=== PATIENT | male | born 1980 | race Caucasian/White ===

== ENCOUNTER 2023-02-11 15:39 | Observation (INO) | payer BC, SELFPAY ==
[2023-02-11] VITALS (7 sets, daily range): BP systolic 116–145; BP diastolic 72–83; PULSE 79–114; RESP 18–24; TEMP 36.3–37.2; O2SAT 94–100; BMI 36.0
[2023-02-11 16:13] LABS: Basophils Percent Auto 0.3 % (0.2-1.2); Eosinophils Absolute Auto 0.2 K/mm3 (0-0.3); Eosinophils Percent Auto 1.3 % (0-4.4); Hematocrit 42.1 % (42.0-52.0); Hemoglobin 14.1 g/dL (14.0-18.0); Immature Granulocyte Absolute 0.04 K/mm3 (0.00-0.031); Immature Granulocyte Percent A 0.3 % (0-0.5); Lymphocytes Absolute Auto 2.61 K/mm3 (0.9-3.2); Lymphocytes Percent Auto 21.8 % (18.3-44.2); Mean Corpuscular HGB Conc 33.5 g/dl (32-36); Mean Corpuscular Hemoglobin 29.3 pg (26-34); Mean Corpuscular Volume 87.5 fl (80-100); Mean Platelet Volume 9.9 fl (7.4-10.4); Monocytes Percent Auto 8.7 % (2.6-8.5); Neutrophils Absolute Auto 8.1 K/mm3 (1.3-6.7); Neutrophils Percent Auto 67.6 % (45.5-73.1); Platelet Count Result 395 k/mm3 (150-375); Red Blood Count 4.81 M/mm3 (4.6-6.20); Red Cell Distribution Width 13.5 % (11.5-14.5)
[2023-02-11 16:20] LABS: Lactic Acid Reflex 1.7 mmol/L (0.7-2.0)
--- NOTE | 2023-02-11 16:22 | ED.LOWEXIN ---
HPI - Extremity Injury (Lower) General Chief Complaint: Extremity Injury, Lower <Alethea Saucedo PA-C - Last Filed: 02/11/23 16:42> Stated Complaint: right leg cellulitis <Alethea Saucedo PA-C - Last Filed: 02/11/23 16:42> Time Seen by Provider: 02/11/23 15:48 <LIU Lawrence Last Filed: 02/11/23 16:42> Source: patient <LIU Lawrence Last Filed: 02/11/23 16:42> Mode of arrival: ambulatory <LIU Lawrence Last Filed: 02/11/23 16:42> Limitations: no limitations <LIU Lawrence Last Filed: 02/11/23 16:42> History of Present Illness HPI Narrative: Patient is a 42-year-old male, with past medical history of diabetes, who presents to the ED with report of left lower leg cellulitis. Patient reports he was camping in the [facility] last week and stepped on a rock sustaining a small abrasion to his left inner plantar foot. He noticed pain, redness, swelling to his left lower leg last Friday. He was started on Augmentin by his primary care doctor. Patient reports the pain, swelling, redness has become worse. He also reports his left lower leg began weeping today. Patient reported fevers last week, none today. States his blood sugars have been elevated. <Alethea Saucedo PA-C - Last Filed: 02/11/23 16:42> Related Data Home Medications: Home Medications Medication Instructions Recorded Confirmed albuterol sulfate 90 mcg/actuation 2 puff inhalation Q6H PRN 02/11/23 02/11/23 aerosol inhaler Shortness Of Breath amoxicillin 875 mg-potassium 1 tablet PO BID 02/11/23 02/11/23 clavulanate 125 mg tablet aspirin 81 mg capsule 81 mg PO DAILY 02/11/23 02/11/23 atorvastatin 40 mg tablet 40 mg PO DAILY 02/11/23 02/11/23 budesonide-formoterol HFA 160 1 puff inhalation QID 02/11/23 02/11/23 mcg-4.5 mcg/actuation aerosol inhaler (Symbicort) dapagliflozin propanediol 10 mg 10 mg PO DAILY 02/11/23 02/11/23 tablet (Farxiga) etodolac 400 mg tablet 400 mg PO PRN 02/11/23 02/11/23 icosapent ethyl 1 gram capsule 2 g PO BID 02/11/23 02/11/23 (Vascepa) insulin degludec 200 unit/mL (3 110 unit subcut DAILY 02/11/23 02/11/23 mL) subcutaneous pen (Tresiba FlexTouch U-200 insulin) lisinopril 20 mg tablet 20 mg PO TID 02/11/23 02/11/23 semaglutide 1 mg/dose (4 mg/3 mL) 2 mg subcut WEEKLY 02/11/23 02/11/23 subcutaneous pen injector (Ozempic) <Alethea Saucedo PA-C - Last Filed: 02/11/23 16:42> Allergies/Adverse Reactions: Allergies Allergy/AdvReac Type Severity Reaction Status Date / Time metformin AdvReac Diarrhea Verified 02/11/23 17:40 <Alethea Saucedo PA-C - Last Filed: 02/11/23 16:42> Review of Systems Review of Systems: CONSTITUTIONAL: Denies fever, chills, or sweats. SKIN: See HPI. MUSCULOSKELETAL: See HPI. NEUROLOGIC: Denies headache, numbness, or weakness. <Alethea Saucedo PA-C - Last Filed: 02/11/23 16:42> All systems reviewed & are unremarkable except as noted in HPI and below <Alethea Saucedo PA-C - Last Filed: 02/11/23 16:42> [facility] Past Medical History Medical History: Medical History Diabetes mellitus <Alethea Saucedo PA-C - Last Filed: 02/11/23 16:42> Family History Family History: Family History Father Family history of diabetes mellitus in first degree relative Other Diabetes mellitus Hypertension <Alethea Saucedo PA-C - Last Filed: 02/11/23 16:42> Social History Social History: Social History Smoking packs per day: 1.5 Smoking cigarettes per day: 30.0 Years smoked: 30 Smoking pack-years: 45.00 Smoking status: Current every day smoker Tobacco type: cigarettes Second hand tobacco smoke exposure: Yes Alcohol intake: current Drinks
[2023-02-11 16:23] LABS: Alanine Aminotransferase 31 U/L (6-50); Albumin Level 4.2 g/dL (3.5-5.1); Alkaline Phosphatase 93 U/L (38-126); Anion Gap 11 mmol/L (8-16); Aspartate Amino Transferase 22 U/L (17-59); Bilirubin,Total 0.6 mg/dL (0.2-1.3); Blood Urea Nitrogen 14 mg/dL (9-20); Calcium 9.3 mg/dL (8.4-10.2); Carbon Dioxide 24 mmol/L (22-30); Chloride 106 mmol/L (98-107); Estimated CRCL calculation 133 ml/min; Estimated Glomerular Filt Rate > 60; Glucose 160 mg/dL (65-110); Potassium 3.5 mmol/L (3.4-5.0); Sodium 141 mmol/L (137-145)
[2023-02-11] MEDS: MORPHINE SULFATE (*CRX) 4 MG/ML INJ IV PUSH (16:36)
--- NOTE | 2023-02-11 16:36 | PC.NURSE ---
called to lab and spoke to Kerri- add on HGB A1C @1632
[2023-02-11] MEDS: ONDANSETRON INJ 4 MG/2 ML VIAL IV PUSH (16:38)
[2023-02-11] MEDS: CEFEPIME 2 GM/NS 50 ML 2 GM/50 ML BAG IVPB (16:40)
[2023-02-11 16:44] LABS: Erythrocyte Sedimentation Rate 91 mm/hr (0-20)
[2023-02-11] MEDS: metroNIDAZOLE 500 MG/ISO 100ML 500 MG/100 ML BAG 100 MG IVPB (16:51)
[2023-02-11 16:56] LABS: Estimated CRCL calculation 133 ml/min; Estimated Glomerular Filt Rate > 60
[2023-02-11 16:59] LABS: Hemoglobin A1C 5.9 % (<5.7)
--- NOTE | 2023-02-11 17:35 | ADMGEN ---
This patient, Kartik High, was admitted to Medical Room 250-01. Patient/family oriented to hospital policies and general routines including ID bracelet, bed and alarms, visiting hours, pain management, procedures, bathroom and other care routines, personal items, smoking policy, room service/diet, and visiting hours. Information on how to activate the Rapid Response Team has been discussed. Patient/Family are encouraged to report perceived risks to care and to ask questions if they do not understand what they are told or what they should do.
[2023-02-11] MEDS: VANCOMYCIN 1,250 MG/NS 250 ML 1,250 MG/250 ML BAG 166.67 MG IVPB ×2 (19:00→19:07)
[2023-02-11] MEDS: ACETAMINOPHEN 500 MG TABLET 1000 MG PO (20:49)
--- NOTE | 2023-02-11 22:12 | PM.IMHP ---
H&P: HPI History of Present Illness Date/Time: 02/11/23 22:00 Chief Complaint: Worsening left leg infection. Narrative: This is a 42-year-old male with insulin-dependent type 2 diabetes mellitus, hypertension, and dyslipidemia who presented to the emergency department via private vehicle from home for evaluation of worsening left leg infection. Patient provides the following history. He went camping 2 weekends ago and stepped on a rock, sustaining a small abrasion to the left inner aspect of the plantar foot. Several days thereafter he developed redness, pain, and swelling around the abrasion and he was started on Augmentin by his doctor. Despite being compliant with antibiotics the area continues to worsen with increased swelling, pain, redness, and today he noticed some weeping from the leg. He had fevers last week but none in the last few days. Appetite has been good and he denies nausea and vomiting. No history of venous thromboembolism or multidrug resistant organisms. Review of Systems Review of Systems: Twelve systems were reviewed and are negative except for as per HPI. [facility] Past Medical History Medical History (Updated 02/11/23 @ 23:37 by Becka Kline PA-C) Dyslipidemia Gastroesophageal reflux disease Hypertension Insulin dependent type 2 diabetes mellitus Obstructive sleep apnea on CPAP Tobacco use disorder Surgical History Surgical History (Updated 02/11/23 @ 22:16 by Becka Kline PA-C) History of hernia repair Family History Family History Father Family history of diabetes mellitus in first degree relative Other Diabetes mellitus Hypertension Social History Social History (Updated 02/11/23 @ 22:16 by Becka Kline PA-C) Social History: Surrogate medical decision maker: Maricruz High, spouse. Code status: Full code. Smoking packs per day: 1.5 Smoking cigarettes per day: 30.0 Years smoked: 30 Smoking pack-years: 45.00 Smoking status: Current every day smoker Tobacco type: cigarettes Second hand tobacco smoke exposure: Yes Alcohol intake: current Drinks per week: 3 Substance use: current Substance use type: marijuana Last use: 02/11/23 Lack of Transportation: No Lack of Food: Never True Current Housing: I Have Housing Concerned About Future Housing: No Difficulty Paying Gas/Electric Bills: No Difficulty Paying for Meds: No Currently Unemployed: No Education: Trade/Vocational Certificate Difficulty w/ Childcare or Family Care: No Additional living arrangements comments: Lives with spouse in [place]. Spiritual care concerns: No Meds Home Medications and Allergies Home Medications Medication Instructions Recorded Confirmed Type albuterol sulfate 90 mcg/actuation 2 puff inhalation Q6H PRN 02/11/23 02/11/23 History aerosol inhaler Shortness Of Breath amoxicillin 875 mg-potassium 1 tablet PO BID 02/11/23 02/11/23 History clavulanate 125 mg tablet aspirin 81 mg capsule 81 mg PO DAILY 02/11/23 02/11/23 History atorvastatin 40 mg tablet 40 mg PO DAILY 02/11/23 02/11/23 History budesonide-formoterol HFA 160 1 puff inhalation QID 02/11/23 02/11/23 History mcg-4.5 mcg/actuation aerosol inhaler (Symbicort) dapagliflozin propanediol 10 mg 10 mg PO DAILY 02/11/23 02/11/23 History tablet (Farxiga) etodolac 400 mg tablet 400 mg PO PRN 02/11/23 02/11/23 History icosapent ethyl 1 gram capsule 2 g PO BID 02/11/23 02/11/23 History (Vascepa) insulin degludec 200 unit/mL (3 110 unit subcut DAILY 02/11/23 02/11/23 History mL) subcutaneous pen (Tresiba FlexTouch U-200 insulin) lisinopril 20 mg tablet 20 mg PO TID 02/11/23 02/11/23 History semaglutide 1 mg/dose (4 mg/3 mL) 2 mg subcut WEEKLY 02/11/23 02/11/23 History subcutaneous pen injector (Ozempic) Allergies Allergy/AdvReac Type Severity Reaction Status Date / Time metformin AdvReac Di
[2023-02-12] VITALS (12 sets, daily range): BP systolic 133–148; BP diastolic 84–98; PULSE 61–81; RESP 18–21; TEMP 36.1–36.8; O2SAT 94–100
[2023-02-12] MEDS: metroNIDAZOLE 500 MG/ISO 100ML 500 MG/100 ML BAG 100 MG IVPB ×4 (00:07→23:59)
[2023-02-12] MEDS: HYDROcodone/acetaminophen (*CRX) 5-325 MG TABLET 1 TAB PO ×3 (00:07→16:11)
[2023-02-12] MEDS: NICOTINE (*PBKC) 21 MG PATCH 1 PATCH TRANSDERM (00:41)
[2023-02-12 05:00] LABS: Hematocrit 38.4 % (42.0-52.0); Hemoglobin 12.6 g/dL (14.0-18.0); Mean Corpuscular HGB Conc 32.8 g/dl (32-36); Mean Corpuscular Hemoglobin 29.3 pg (26-34); Mean Corpuscular Volume 89.3 fl (80-100); Mean Platelet Volume 9.7 fl (7.4-10.4); Platelet Count Result 337 k/mm3 (150-375); Red Cell Distribution Width 13.7 % (11.5-14.5); White Blood Count 10.1 K/mm3 (4.5-10.0)
[2023-02-12 05:15] LABS: Anion Gap 7 mmol/L (8-16); Blood Urea Nitrogen 11 mg/dL (9-20); Calcium 8.5 mg/dL (8.4-10.2); Carbon Dioxide 27 mmol/L (22-30); Chloride 105 mmol/L (98-107); Estimated CRCL calculation 174 ml/min; Estimated Glomerular Filt Rate > 60; Glucose 144 mg/dL (65-110); Magnesium 2.3 mg/dL (1.6-2.3); Potassium 3.7 mmol/L (3.4-5.0); Sodium 139 mmol/L (137-145)
[2023-02-12] MEDS: CEFEPIME 2 GM/NS 50 ML 2 GM/50 ML BAG IVPB ×2 (05:56→17:15)
[2023-02-12] MEDS: ASPIRIN 81 MG ENTERIC TABLET PO (08:03)
[2023-02-12] MEDS: lisinopriL 20 MG TABLET PO ×3 (08:03→17:16)
[2023-02-12] MEDS: ATORVASTATIN 40 MG TABLET PO (08:03)
[2023-02-12] MEDS: OMEGA 3 POLYUNSAT FATTY ACIDS 1 GM CAP 2 GM PO ×2 (08:03→17:16)
[2023-02-12] MEDS: EMPAGLIFLOZIN 25 MG TABLET PO (08:03)
[2023-02-12] MEDS: ENOXAPARIN 40 MG/0.4 ML SYRINGE SUB-Q (08:50)
[2023-02-12 08:52] LABS: Glucose Point of Care 172 mg/dl (65-105)
[2023-02-12] MEDS: INSULIN GLARGINE (*BKC) 100 UNITS/ML 110 UNITS SUB-Q (08:54)
[2023-02-12] MEDS: FLUTICASONE/SALMETEROL 115-21 MCG INHALER 1 PUFF 2 PUFF INHALATION ×2 (09:19→20:29)
--- NOTE | 2023-02-12 11:01 | PM.IMPN ---
Progress Note: A&P Assessment and Plan (1) Cellulitis of left lower extremity: Code(s): L03.116 - Cellulitis of left lower limb Status: Acute Assessment and Plan: Continue IV antibiotics vancomycin and cefepime. Mechanical DVT contraindicated due to presence of cellulitis with open wounds. (2) Insulin dependent type 2 diabetes mellitus: Code(s): E11.9 - Type 2 diabetes mellitus without complications; Z79.4 - termite helper (current) use of insulin Status: Acute Assessment and Plan: Stable on Tresiba, Ozempic and Farxiga. Hemoglobin A1c 5.9. Continue sliding scale and Lantus while hospitalized. (3) Obstructive sleep apnea on CPAP: Code(s): G47.33 - Obstructive sleep apnea (adult) (pediatric) Status: Acute Assessment and Plan: No acute complaints, compliant using home CPAP machine (4) Tobacco use disorder: Code(s): F17.200 - Nicotine dependence, unspecified, uncomplicated Status: Acute Assessment and Plan: Spent 3 minutes discussing smoking cessation with nicotine replacement as needed. Continue nicotine patch while in the hospital. (5) Hypertension: Code(s): I10 - Essential (primary) hypertension Status: Acute Assessment and Plan: Stable thus far while hospitalized. Continue to monitor. Continue home lisinopril. Plan Patient currently receiving IV vancomycin and IV cefepime which will be continued. Patient failed oral Augmentin prior to hospitalization. Continue glycemic control Time Spent With Patient Time with patient: 25 - 35 minutes Subjective Date/time seen: 02/12/23 11:01 Interval history: This is a 42-year-old male patient with history insulin-dependent type 2 diabetes, hypertension and dyslipidemia who was admitted to the hospital for left lower extremity cellulitis with failure of outpatient treatment on Augmentin. Patient reports he some fevers within the last week but has been fever free the last couple of days. He had extensive erythema to the left lower extremity with new weeping blisters so he was admitted for IV antibiotics. Patient reports that after 1 day of IV antibiotics the redness has already subsided quite a bit and is looking and feeling much better. Patient states he has a history of cellulitis on the opposite leg requiring IV antibiotics in the past. Review of Systems Review of Systems: All systems reviewed & are unremarkable except as noted in HPI and below Constitutional: Constitutional: Denies chills and Denies weakness Cardiovascular: Cardiovascular: Denies chest pain and Denies palpitations Respiratory: Respiratory: Denies cough, Denies hemoptysis, Denies dyspnea, Denies dyspnea on exertion and Denies wheezing Gastrointestinal: Gastrointestinal: Denies abdominal pain, Denies melena, Denies constipation, Denies diarrhea, Denies nausea and Denies vomiting Exam Narrative: General:? Obese, well appearing, nontoxic male in the semi-Bautista position in bed. HEENT:??PERRL, EOMI. Sclera anicteric.? Oral mucosa moist.? Neck:??Supple. Respiratory:?Lungs are clear to auscultation bilaterally. Cardiovascular:??Regular rate and rhythm with S1-S2.? Gastrointestinal:??Abdomen is nontender, and nondistended with positive bowel sounds. Skin:? Warm and dry. Left lower extremity is erythematous, edematous, warm, and tender to touch. Erythema is circumferential from just below the knee to the ankle. There appears to be some recession of erythema skin marking that was drawn on admission. There are scattered, small blisters with weeping serous fluid on the left horton. Small abrasion to the arch of the plantar foot and changes consistent with tinea in the web spaces between the toes with small fissure. Extremities:??No cyanosis or clubbing. Left lower extremity is edematous due to infection as above. Radial and pedal pulses intact. Neurological:??Alert and oriented. Moves all extremities well. No gross focal deficits to casu
[2023-02-12 11:55] LABS: Glucose Point of Care 110 mg/dl (65-105)
[2023-02-12 17:17] LABS: Glucose Point of Care 89 mg/dl (65-105)
[2023-02-12] MEDS: ACETAMINOPHEN 500 MG TABLET 1000 MG PO (20:21)
[2023-02-12 22:26] LABS: Glucose Point of Care 144 mg/dl (65-105)
[2023-02-13] MEDS: CEFEPIME 2 GM/NS 50 ML 2 GM/50 ML BAG IVPB (06:42)
[2023-02-13 06:50] VITALS: BP 140/92; PULSE 72; RESP 20; TEMP 36; O2SAT 99
[2023-02-13 07:00] LABS: Basophils Percent Auto 0.2 % (0.2-1.2); Eosinophils Absolute Auto 0.1 K/mm3 (0-0.3); Eosinophils Percent Auto 1.2 % (0-4.4); Hematocrit 40.6 % (42.0-52.0); Hemoglobin 13.3 g/dL (14.0-18.0); Immature Granulocyte Absolute 0.05 K/mm3 (0.00-0.031); Immature Granulocyte Percent A 0.6 % (0-0.5); Lymphocytes Absolute Auto 1.75 K/mm3 (0.9-3.2); Lymphocytes Percent Auto 20.4 % (18.3-44.2); Mean Corpuscular HGB Conc 32.8 g/dl (32-36); Mean Corpuscular Hemoglobin 28.8 pg (26-34); Mean Corpuscular Volume 87.9 fl (80-100); Mean Platelet Volume 9.5 fl (7.4-10.4); Monocytes Absolute Auto 0.6 K/mm3 (0.1-0.6); Monocytes Percent Auto 7.4 % (2.6-8.5); Neutrophils Percent Auto 70.2 % (45.5-73.1); Platelet Count Result 381 k/mm3 (150-375); Red Blood Count 4.62 M/mm3 (4.6-6.20); White Blood Count 8.6 K/mm3 (4.5-10.0)
[2023-02-13 07:07] LABS: Anion Gap 6 mmol/L (8-16); Blood Urea Nitrogen 9 mg/dL (9-20); Calcium 8.5 mg/dL (8.4-10.2); Carbon Dioxide 30 mmol/L (22-30); Chloride 103 mmol/L (98-107); Estimated CRCL calculation 134 ml/min; Estimated Glomerular Filt Rate > 60; Glucose 95 mg/dL (65-110); Potassium 3.9 mmol/L (3.4-5.0); Sodium 139 mmol/L (137-145)
[2023-02-13 07:20] LABS: Vancomycin Trough 7.6 ug/mL (10.0-20.0)
[2023-02-13] MEDS: FLUTICASONE/SALMETEROL 115-21 MCG INHALER 1 PUFF 2 PUFF INHALATION (08:05)
[2023-02-13] MEDS: ASPIRIN 81 MG ENTERIC TABLET PO (08:12)
[2023-02-13] MEDS: lisinopriL 20 MG TABLET PO (08:13)
[2023-02-13] MEDS: ATORVASTATIN 40 MG TABLET PO (08:13)
[2023-02-13] MEDS: ENOXAPARIN 40 MG/0.4 ML SYRINGE SUB-Q (08:13)
[2023-02-13] MEDS: EMPAGLIFLOZIN 25 MG TABLET PO (08:13)
[2023-02-13] MEDS: OMEGA 3 POLYUNSAT FATTY ACIDS 1 GM CAP 2 GM PO (08:14)
[2023-02-13] MEDS: metroNIDAZOLE 500 MG/ISO 100ML 500 MG/100 ML BAG 100 MG IVPB (08:14)
[2023-02-13] MEDS: NICOTINE (*PBKC) 21 MG PATCH 1 PATCH TRANSDERM (08:14)
[2023-02-13 08:34] LABS: Glucose Point of Care 95 mg/dl (65-105)
[2023-02-13] MEDS: INSULIN GLARGINE (*BKC) 100 UNITS/ML 110 UNITS SUB-Q (09:24)
--- NOTE | 2023-02-13 10:03 | PM.DS ---
DS: Admitting Diagnosis Discharge Date 02/13/2023 Admitting Diagnosis Cellulitis of left lower limb Insulin-dependent type 2 diabetes mellitus Hypertension Dyslipidemia Tobacco use disorder DS: Discharge Diagnosis Discharge Diagnosis (1) Cellulitis of left lower extremity: Code(s): L03.116 - Cellulitis of left lower limb Status: Acute Assessment and Plan: Significantly improving left lower extremity erythema warmth and tenderness. Swelling is improving. Erythema is approximately 60% of previous involved area. Serous drainage has nearly ceased. Will discontinue IV antibiotics and sent home on combination therapy since patient had prior failure of Augmentin leading to hospitalization. (2) Insulin dependent type 2 diabetes mellitus: Code(s): E11.9 - Type 2 diabetes mellitus without complications; Z79.4 - snf (current) use of insulin Status: Acute Assessment and Plan: Glucose levels improved with sliding scale treatment and home medications while hospitalized. Patient has decent glycemic control at home with an A1c level of 5.9 upon this admission. Discharge with resumption of home dosing of insulin. (3) Hypertension: Code(s): I10 - Essential (primary) hypertension Status: Acute Assessment and Plan: During hospitalization patient's blood pressures primarily 130s to 140s over 80s to 90s. Patient okay to resume home medications upon discharge. (4) Dyslipidemia: Code(s): E78.5 - Hyperlipidemia, unspecified Status: Acute Assessment and Plan: No change in plan resume home medications. (5) Tobacco use disorder: Code(s): F17.200 - Nicotine dependence, unspecified, uncomplicated Status: Acute Assessment and Plan: Spoke with patient regarding smoking cessation and nicotine patch prescribed upon discharge (6) Obstructive sleep apnea on CPAP: Code(s): G47.33 - Obstructive sleep apnea (adult) (pediatric) Status: Acute Assessment and Plan: Patient maintaining compliance with home CPAP use while hospitalized. He will continue to use this at home as well. DS: Summary Hospital Course Reason for hospitalization: This is a 42-year-old male patient history of insulin-dependent type 2 diabetes who is admitted to the hospital for cellulitis left lower extremity that had failed to respond to oral Augmentin as an outpatient. Hospital Course: Patient was admitted to the hospital due to white blood cell count elevation along with ESR and CRP elevation, normal lactic acid. He had worsening left lower extremity cellulitis that was not responding well to Augmentin and continuing to get worse. While in the hospital patient was treated with aggressive broad-spectrum antibiotics vancomycin, cefepime and Flagyl with prompt improvement. By 24 hours erythema had stopped spreading and began retreating. By 48 hours of treatment area of infected tissue had decreased to about 60% of initial findings along with decreased swelling decreased tenderness and better glycemic control. Patient became very anxious to go home so he was discharged on combination of oral antibiotics Bactrim, Keflex and Flagyl. Time spent discussing smoking cessation with patient: more than 10 minutes Status at Discharge Cognitive/behavioral status at discharge: Awake, alert, oriented and excited to go home. Functional status at discharge: independent ambulation Time Spent with Patient Time attestation: Total time spent providing and/or coordinating discharge services: Time spent: Greater than 30 minutes Exam Narrative: General:??Obese, well appearing, nontoxic male in the semi-Bautista position in bed. Patient eating breakfast comfortably. HEENT:??PERRL, EOMI. Sclera anicteric.? Oral mucosa moist.? Neck:??Supple. Respiratory:?Lungs are clear to auscultation bilaterally. Cardiovascular:??Regular rate and rhythm with S1-S2.? Gastrointestinal:??Abdomen is nontender, and no
== END 2023-02-13 12:10 | disposition home or self-care (01) ==
LOC: ANHED 16:42 → ANH2MED 18:47
PROVIDERS: Physician Assistant; Admitting Provider Chiropractor; Emergency Provider Physician Assistant; PCP Internal Medicine; Visit Provider Nurse Practitioner
DX: L03.116 Cellulitis of left lower limb (principal); E11.65 Type 2 diabetes mellitus with hyperglycemia; I10 Essential (primary) hypertension; E78.5 Hyperlipidemia, unspecified; R00.0 Tachycardia, unspecified; G47.33 Obstructive sleep apnea (adult) (pediatric); Z99.89 Dependence on other enabling machines and devices; E66.9 Obesity, unspecified; Z68.36 Body mass index [BMI] 36.0-36.9, adult; F17.210 Nicotine dependence, cigarettes, uncomplicated; F10.90 Alcohol use, unspecified, uncomplicated; F12.90 Cannabis use, unspecified, uncomplicated; Z79.51 Long term (current) use of inhaled steroids; Z79.82 Long term (current) use of aspirin; Z79.4 Long term (current) use of insulin; Z79.85 Long-term (current) use of injectable non-insulin antidiabetic drugs; Z79.899 Other long term (current) drug therapy; Z83.3 Family history of diabetes mellitus
CPT/HCPCS: 36415; 80048; 80053; 80202; 82565; 82948; 83036; 83605; 83735; 85025; 85027; 85652; 86140; 87040; 94640; 96365; 96366; 96367; 96372; 96375; 96376; 99285; A9270; G0378; J0692; J1650; J1815; J1836; J2270; J2405; J3370